=== PATIENT | female | born 1995 | race Caucasian/White ===

== ENCOUNTER 2016-05-13 19:58 | Emergency (ER) | payer OTHER ==
[2016-05-13 20:27] LABS: BASOPHIL % 1.1 % (0-2); PLATELET COUNT 288 x10^3mcL (130-400); RED CELL DISTRIBUTION WIDTH 12.6 % (11.5-14.5)
[2016-05-13 20:41] LABS: CARBON DIOXIDE 30.3 mmol/L (21-32); CHLORIDE SERUM 104 mmol/L (98-107); CREATININE SERUM 0.6 mg/dL (0.6-1.0); GFR1 > 60 mL/min; GLUCOSE SERUM 91 mg/dL (74-106); POTASSIUM SERUM 3.8 mmol/L (3.5-5.1); SODIUM SERUM 139 mmol/L (136-145)
[2016-05-13 20:50] LABS: ALBUMIN 4.2 g/dL (3.4-5.0); ALKALINE PHOSPHATASE 74 U/L (46-116); ALT/SGPT 27 U/L (14-59); AST/SGOT 12 U/L (15-37); BILIRUBIN TOTAL 0.41 mg/dL (0.20-1.00); T4(THYROXINE) 6.6 ug/dL (4.7-13.3); TOTAL PROTEIN, SERUM 8.2 g/dL (6.4-8.2)
[2016-05-13 21:56] VITALS: BP 118/74
== END 2016-05-13 21:56 | disposition home or self-care (01) ==
LOC: ED 19:58
PROVIDERS: Emergency Medicine
DX: R53.1 Weakness (principal)
CPT/HCPCS: Q0092

== ENCOUNTER 2017-04-04 09:30 | Emergency (ER) | payer MEDICAID ==
[~2017-04-04] VITALS: Ht 160 cm; Wt 63.5 kg
[2017-04-04 09:34] VITALS: Ht 160 cm; Wt 63.5 kg
[2017-04-04 10:58] LABS: BASOPHIL % 0.2 % (0-2); PLATELET COUNT 264 x10^3mcL (130-400); RED CELL DISTRIBUTION WIDTH 12.8 % (11.5-14.5)
[2017-04-04 11:07] LABS: microscopic required? NO
[2017-04-04 11:23] VITALS: BP 97/37
[2017-04-04 11:30] LABS: urine erythrocyte NEGATIVE (NEGATIVE)
== END 2017-04-04 12:50 | disposition home or self-care (01) ==
LOC: ED 09:30
PROVIDERS: Emergency Medicine
DX: O26.891 Other specified pregnancy related conditions, first trimester (principal); M54.5 Low back pain; N83.209 Unspecified ovarian cyst, unspecified side; Z3A.00 Weeks of gestation of pregnancy not specified
CPT/HCPCS: 36415

== ENCOUNTER 2017-06-13 16:23 | Emergency (ER) | payer MEDICAID ==
[~2017-06-13] VITALS: Ht 154.9 cm; Wt 69.8 kg
[2017-06-13 16:58] VITALS: Ht 154.9 cm; Wt 69.8 kg
[2017-06-13 17:26] VITALS: BP 92/59
== END 2017-06-13 17:50 | disposition home or self-care (01) ==
LOC: ED 16:23
DX: O26.891 Other specified pregnancy related conditions, first trimester (principal); R42 Dizziness and giddiness; E86.0 Dehydration; Z3A.13 13 weeks gestation of pregnancy

== ENCOUNTER 2018-03-19 11:20 | Emergency (ER) | payer OTHER ==
[~2018-03-19] VITALS: Ht 157.5 cm; Wt 54.4 kg
[2018-03-19 11:31] VITALS: Ht 157.5 cm; Wt 54.4 kg
[2018-03-19 13:50] LABS: BASOPHIL % 0.4 % (0-2); PLATELET COUNT 325 x10^3mcL (130-400)
[2018-03-19 13:51] LABS: RED CELL DISTRIBUTION WIDTH 16.3 % (11.5-14.5)
[2018-03-19 14:10] LABS: CALCIUM 9.1 mg/dL (8.5-10.1); CARBON DIOXIDE 30.3 mmol/L (21-32); CHLORIDE SERUM 102 mmol/L (98-107); CREATININE SERUM 0.5 mg/dL (0.6-1.0); GFR1 > 60 mL/min; GLUCOSE SERUM 94 mg/dL (74-106); POTASSIUM SERUM 3.8 mmol/L (3.5-5.1); SODIUM SERUM 139 mmol/L (136-145)
[2018-03-19 14:14] LABS: ALBUMIN 3.6 g/dL (3.4-5.0); ALKALINE PHOSPHATASE 105 U/L (46-116); ALT/SGPT 23 U/L (14-59); AMYLASE 30 U/L (25-115); AST/SGOT 14 U/L (15-37); BILIRUBIN TOTAL 0.53 mg/dL (0.20-1.00); LIPASE 81 IU/L (73-393)
[2018-03-19 15:39] VITALS: BP 112/76
== END 2018-03-19 13:53 | disposition home or self-care (01) ==
LOC: ED 11:20
PROVIDERS: Specialist
DX: R10.11 Right upper quadrant pain (principal)
CPT/HCPCS: 36415; J1885

== ENCOUNTER 2019-02-19 08:19 | Emergency (ER) | payer OTHER ==
[~2019-02-19] VITALS: Ht 160 cm; Wt 61.2 kg
[2019-02-19 08:21] VITALS: Ht 160 cm; Wt 61.2 kg
[2019-02-19 10:20] VITALS: BP 120/82
== END 2019-02-19 10:20 | disposition home or self-care (01) ==
LOC: ED 08:19
DX: J11.1 Influenza due to unidentified influenza virus with other respiratory manifestations (principal)
CPT/HCPCS: 87804; Q0092